=== PATIENT | female | born 1935 | race Caucasian/White ===

== ENCOUNTER 2017-12-30 08:37 | Inpatient (IN) ==
[2018-01-01 09:53] VITALS: BP 174/74
== END 2018-01-01 13:00 | disposition home or self-care (01) | DRG 309 ==
LOC: N.TELEN 10:07 → SUATTDRO 10:07
PROVIDERS: ADMIT Internal Medicine; ATTEND Internal Medicine

== ENCOUNTER 2018-05-29 10:52 | Observation (INO) ==
[2018-05-29] MEDS ORDERED: ASPIRIN 325 MG TABLET PO STA (11:21)
[2018-05-29] MEDS ORDERED: ONDANSETRON 4 MG/2 ML VIAL IV STA (11:21)
[2018-05-29] MEDS ORDERED: NITROGLYCERIN 2% OINT 1 INCH/GM PACK TOP STA (11:21)
[2018-05-29 11:48] LABS: Basophils # 0.1 10*3/uL (0.0-0.2); Basophils % 1.2 % (0.0-0.8); Eosinophils % 0.5 % (0.00-10.9); Hematocrit 43.5 VOL% (35.7-47.0); Hemoglobin 14.1 GM/DL (12.0-16.0); Immature Granulocytes % 0.3 %; Immature Granulocytes Absolute 0.02 #; Lymphocytes # 1.9 10*3/uL (1.4-4.0); Lymphocytes % 31.6 % (21.3-54.2); Mean Corpuscular HGB Conc 32.4 GM/DL (32-36); Mean Corpuscular Hemoglobin 31 PG (27-34); Mean Platelet Volume 9.9 FL (9.6-12.0); Monocytes # 0.6 10*3/uL (0.11-0.8); Neutrophils # 3.3 10*3/uL (1.4-7.4); Neutrophils % 56.4 % (38.7-73.9); Platelet Count 210 T/CUMM (130-400); Red Blood Count 4.63 MC/CUMM (3.8-5.5); Red Cell Distribution Width 12.3 % (9.3-17.3); White Blood Count 5.9 T/CUMM (4-12)
[2018-05-29 11:56] LABS: PT Patient Result 10.8 SECS
[2018-05-29 12:10] LABS: Albumin 4.2 G/DL (3.4-5.0); Bilirubin,Total 0.9 MG/DL (0.2-1.0); Calcium 9.5 MG/DL (8.5-10.1); Total Protein 7.5 G/DL (6.4-8.3)
[2018-05-29] MEDS ORDERED: MORPHINE 4 MG/1 ML VIAL IV PRN ×2 (14:20→14:37)
[2018-05-29] MEDS ORDERED: NITROGLYCERIN SL 0.4 MG TABLET SL PRN (14:20)
[2018-05-29] MEDS ORDERED: hydrALAZINE 20 MG/1 ML VIAL IV PRN (14:22)
[2018-05-29] MEDS ORDERED: ALUMINUM/MAGNES/SIMETH MAX STR 30 ML UDCUP PO PRN (14:37)
[2018-05-29] MEDS ORDERED: MAGNESIUM SULF RIDER 2 GM in PREMIX 1 EACH IV PRN (14:37)
[2018-05-29] MEDS ORDERED: POTASSIUM CHLORIDE 20 MEQ TABLET PO PRN (14:37)
[2018-05-29] MEDS ORDERED: MAGNESIUM HYDROXIDE SUSP 30 ML UDCUP PO PRN (14:37)
[2018-05-29] MEDS ORDERED: ONDANSETRON 4 MG/2 ML VIAL IV PRN (14:37)
[2018-05-29] MEDS ORDERED: diphenhydrAMINE CAP 25 MG CAPSULE PO PRN (14:37)
[2018-05-29] MEDS ORDERED: LACTULOSE 20 GM/30 ML UDCUP PO PRN (14:37)
[2018-05-29] MEDS ORDERED: ZALEPLON 5 MG CAPSULE PO PRN (14:37)
[2018-05-29] MEDS ORDERED: MAGNESIUM SULF RIDER 4 GM in PREMIX 1 EACH IV PRN (14:37)
[2018-05-29] MEDS ORDERED: amLODIPine 5 MG TABLET PO SCH (21:00)
[2018-05-29] MEDS ORDERED: DONEPEZIL 10 MG TABLET PO SCH (21:00)
[2018-05-29] MEDS: ACETAMINOPHEN 325 MG TABLET PO SCH (22:56)
[2018-05-29] MEDS: GABAPENTIN 100 MG CAPSULE PO SCH (22:56)
[2018-05-30 05:16] LABS: Basophils # 0.1 10*3/uL (0.0-0.2); Basophils % 1.2 % (0.0-0.8); Eosinophils # 0.1 10*3/uL (0.0-0.87); Eosinophils % 1.2 % (0.00-10.9); Hematocrit 37.9 VOL% (35.7-47.0); Hemoglobin 12.2 GM/DL (12.0-16.0); Immature Granulocytes % 0.4 %; Immature Granulocytes Absolute 0.02 #; Lymphocytes # 1.9 10*3/uL (1.4-4.0); Mean Corpuscular HGB Conc 32.2 GM/DL (32-36); Mean Corpuscular Hemoglobin 30 PG (27-34); Mean Corpuscular Volume 93.3 FL (87-102); Monocytes # 0.5 10*3/uL (0.11-0.8); Monocytes % 10.6 % (1.7-12.7); Neutrophils # 2.4 10*3/uL (1.4-7.4); Neutrophils % 47.6 % (38.7-73.9); Platelet Count 175 T/CUMM (130-400); Red Blood Count 4.06 MC/CUMM (3.8-5.5); Red Cell Distribution Width 12.2 % (9.3-17.3)
[2018-05-30 05:45] LABS: Bilirubin,Total 0.6 MG/DL (0.2-1.0); Calcium 8.8 MG/DL (8.5-10.1); Total Protein 6.2 G/DL (6.4-8.3)
[2018-05-30 05:46] LABS: Osmolality,Calculated 288.8 MOS/KG (273-304); Potassium 4.1 MMOL/L (3.5-5.1); Risk Ratio 4.35; Thyroid Stimulating Hormone 2.9 uIU/ml (0.358-3.74); VLDL CHOLESTEROL 15.2 MG/DL
[2018-05-30] MEDS ORDERED: PANTOPRAZOLE 40 MG TABLET PO SCH (09:00)
[2018-05-30] MEDS ORDERED: MONTELUKAST 10 MG TABLET PO SCH (09:00)
[2018-05-30] MEDS ORDERED: LEVOTHYROXINE 25 MCG TABLET PO SCH (09:00)
[2018-05-30] MEDS ORDERED: LOSARTAN 50 MG TABLET PO SCH (09:00)
[2018-05-30] MEDS ORDERED: METOPROLOL SUCCINATE XL 25 MG TABLET PO SCH (09:00)
[2018-05-30] MEDS ORDERED: ASPIRIN EC 81 MG TABLET PO SCH (09:00)
[2018-05-30 12:12] VITALS: BP 140/73
[2018-05-30] MEDS: ACETAMINOPHEN 325 MG TABLET PO SCH (14:45)
[2018-05-30] MEDS: GABAPENTIN 100 MG CAPSULE PO SCH (14:45)
[2018-05-30] MEDS ORDERED: traZODone 50 MG TABLET PO SCH (21:00)
== END 2018-05-30 15:00 | disposition home or self-care (01) ==
LOC: N.ED 10:52 → N.EDINP 10:52 → N.TELEN 14:35
PROVIDERS: ADMIT Internal Medicine Cardiovascular Disease; ATTEND Internal Medicine Cardiovascular Disease